=== PATIENT | male | born 1995 | race American Indian/Alaskan Native ===

== ENCOUNTER 2021-07-24 09:04 | Emergency (ER) | payer SELFPAY ==
[2021-07-24] MEDS ORDERED: METAXALONE 800 MG TAB PO ONE (09:25)
--- NOTE | 2021-07-24 09:26 | Emergency Department Report ---
ED Back Pain/Injury HPI - General Chief Complaint: Back Pain/Injury Stated Complaint: FALL INJURY-BACK PAIN Time Seen by Provider: 07/24/21 09:15 Source: patient Limitations: No Limitations - History of Present Illness Initial Comments: Patient presents secondary to back pain after fall. He was at work yesterday. He was climbing up on a truck to help unload. Unfortunately, the truck started to move as he was climbing. He fell backwards. He states that he did not have time to jump off. He fell onto his back. He has been having severe back pain. He went to [facility] urgent care yesterday. They suggested that he get seen and actually filled out transfer paperwork for him to go to the ED. He did not have money to pay for an ambulance. He went home instead and took ibuprofen. That is not helping. He came here today for evaluation. Pain is diffuse in the neck and back. He states that it hurts with any kind of movement. He denies numbness or tingling in the arms or legs. He has no incontinence of bowel or bladder. He has no other complaint. He has never injured his back before. Pain is constant. - Related Data Previous Rx's Medication Instructions Recorded Last Taken Type Acetaminophen/Codeine [Tylenol 1 tab PO Q6H PRN #12 tab 07/24/21 Unknown Rx /Codeine # 3 tab] Lidocaine [Lidoderm] 1 each TP DAILY #30 patch 07/24/21 Unknown Rx Metaxalone [Skelaxin] 800 mg PO TID #9 tablet 07/24/21 Unknown Rx Allergies Allergy/AdvReac Type Severity Reaction Status Date / Time No Known Allergies Allergy Verified 07/24/21 09:10 ED Review of Systems ROS: Stated complaint: FALL INJURY-BACK PAIN Other details as noted in HPI Comment: All other systems reviewed and negative Constitutional: denies: fever Eyes: denies: vision change ENT: denies: throat pain Respiratory: denies: cough Cardiovascular: denies: chest pain Endocrine: denies: unexplained weight loss Gastrointestinal: denies: abdominal pain Genitourinary: denies: dysuria Musculoskeletal: as per HPI Skin: denies: rash Neurological: denies: headache Hematological/Lymphatic: denies: easy bruising ED Past Medical Hx - Past Medical History Previous Medical History?: No - Surgical History Past Surgical History?: No - Family History Family history: no significant - Medications Home Medications: Home Medications Medication Instructions Recorded Confirmed Last Taken Type Acetaminophen/Codeine [Tylenol 1 tab PO Q6H PRN #12 tab 07/24/21 Unknown Rx /Codeine # 3 tab] Lidocaine [Lidoderm] 1 each TP DAILY #30 patch 07/24/21 Unknown Rx Metaxalone [Skelaxin] 800 mg PO TID #9 tablet 07/24/21 Unknown Rx ED Physical Exam - General Limitations: No Limitations, Other (Pulse ox noted and normal) General appearance: alert, in no apparent distress - Head Head exam: Present: atraumatic, normocephalic - Eye Eye exam: Present: normal appearance, PERRL, EOMI, scleral icterus - ENT ENT exam: Present: normal orophraynx, normal external ear exam - Neck Neck exam: Present: normal inspection, tenderness (Diffuse), other (No point tenderness). Absent: meningismus - Respiratory Respiratory exam: Present: normal lung sounds bilaterally. Absent: respiratory distress - Cardiovascular Cardiovascular Exam: Present: regular rate, normal rhythm - GI/Abdominal GI/Abdominal exam: Present: soft. Absent: distended, tenderness - Extremities Exam Extremities exam: Present: normal capillary refill - Back Exam Back exam: Present: paraspinal tenderness (Diffuse thoracic and lumbar), vertebral tenderness (Diffuse thoracic and lumbar). Absent: CVA tenderness (R), CVA tenderness (L) - Neurological Exam Neurological exam: Present: alert, oriented X3, CN II-XII intact, abnormal gait (Antalgic), reflexes normal, other (Negative straight leg raise). Absent: motor sensory deficit - Psychiatric Psychiatric exam: Present: normal affect, normal mood - Skin Skin exam: Present: warm, dry ED Course Vital Signs 07/24/21 09:13 Temperature 98.0 F Pulse Rate 77 Respiratory 16 Rate Blood Pressure 120/75 O2 Sat by Pulse 99 Oximetry - Reevaluation(s) Reevaluation #1: 07/24/21 09:26 X-rays were ordered. Analgesics ordered. Old records noted. Reevaluation #2: 07/24/21 10:29 X-rays were noted. Patient was discharged. ED Medical Decision Making - Radiology Data Radiology results: report reviewed - Medical Decision Making Patient presented secondary to diffuse neck and back pain after a fall at work. Radiographically, there is no evidence of acute fracture or compression fracture. Disc height has been noted. Patient has no neurologic symptom or deficit that would suggest any type of cord injury. I do not believe MRI is indicated emergently. We have treated him symptomatically. He will be referred back to work comp. He can continue NSAIDs [id number]. He was given a prescription for ibuprofen and can take that as well. Critical Care Time: No Critical care attestation.: If time is entered above; I have spent that time in minutes in the direct care of this critically ill patient, excluding procedure time. ED Disposition Clinical Impression: Strain of thoracic back region Fall Qualifiers: Encounter type: initial encounter Qualified Code(s): W19.XXXA - Unspecified fall, initial encounter Acute cervical myofascial strain Qualifiers: Encounter type: initial encounter Qualified Code(s): S16.1XXA - Strain of muscle, fascia and tendon at neck level, initial encounter Acute lumbar myofascial strain Qualifiers: Encounter type: initial encounter Qualified Code(s): S39.012A - Strain of muscle, fascia and tendon of lower back, initial encounter Disposition: HOME / SELF CARE / HOMELESS Is pt being admited?: No Condition: Stable Instructions: Muscle Strain, [id number], Lumbosacral Strain, Cervical Sprain, How to Use Cold Therapy, [id number] Additional Instructions: Apply ice for 3 days. After 3 days, switch to heat. Drink plenty of water. Return for problems. Follow-up with your regular doctor or the work comp doc in 2 to 3 days for recheck. Prescriptions: Lidocaine [Lidoderm] 1 each TP DAILY #30 patch Metaxalone [Skelaxin] 800 mg PO TID #9 tablet Acetaminophen/Codeine [Tylenol /Codeine # 3 tab] 1 tab PO Q6H PRN #12 tab PRN Reason: Pain , Severe (7-10)
[2021-07-24 09:56] VITALS: BP 120/75
--- NOTE | 2021-07-24 10:10 | XRay Report ---
EXAMINATION: Cervical spine radiograph series, 3 views, 07/24/2021 CLINICAL INFORMATION / INDICATION: Trauma. Neck pain. COMPARISON: None FINDINGS: There is normal alignment of the cervical vertebral bodies. Vertebral body height and inter vertebral disc spaces appear well maintained. No significant bony degenerative changes are noted. The re is no evidence of prevertebral soft tissue swelling. The odontoid view demonstrates no focal abnor mality. IMPRESSION: No radiographic evidence of acute bony abnormality of the cervical spine. Signer Name: Esther Comer MD Signed: 07/24/2021 10:06 AM Workstation Name: [id number]
--- NOTE | 2021-07-24 10:12 | XRay Report ---
EXAMINATION: Thoracic spine radiograph series, 2 views, 07/24/2021 CLINICAL INFORMATION / INDICATION: Trauma. Back pain. COMPARISON: None FINDINGS: There is normal alignment of the thoracic vertebral bodies. Vertebral body height and inter vertebral disc spaces are well maintained. There are no significant bony degenerative changes. IMPRESSION: No radiographic evidence of acute bony abnormality of the thoracic spine. Signer Name: Esther Comer MD Signed: 07/24/2021 10:07 AM Workstation Name: [id number]
--- NOTE | 2021-07-24 10:13 | XRay Report ---
EXAMINATION: Lumbar spine radiograph series, 2 views, 07/24/2021 CLINICAL INFORMATION / INDICATION: Trauma. Back pain. COMPARISON: None FINDINGS: There is normal alignment of the lumbar vertebral bodies. Vertebral body height and interve rtebral disc spaces are well maintained. There are no significant bony degenerative changes. IMPRESSION: No radiographic evidence of acute bony abnormality of the lumbar spine. Signer Name: Esther Comer MD Signed: 07/24/2021 10:09 AM Workstation Name: [id number]
== END 2021-07-24 10:46 | disposition home or self-care (01) ==
LOC: ED 09:04
DX: S16.1XXA Strain of muscle, fascia and tendon at neck level, initial encounter (principal); S39.012A Strain of muscle, fascia and tendon of lower back, initial encounter; S29.012A Strain of muscle and tendon of back wall of thorax, initial encounter; Z79.899 Other long term (current) drug therapy; W18.39XA Other fall on same level, initial encounter; Y93.89 Activity, other specified; Y92.89 Other specified places as the place of occurrence of the external cause; Y99.8 Other external cause status
CPT/HCPCS: 72040; 72070; 72100; 99283

== ENCOUNTER 2022-01-17 14:20 | Emergency (ER) | payer SELFPAY ==
[2022-01-17 15:51] VITALS: BP 115/74
--- NOTE | 2022-01-17 15:55 | Emergency Department Report ---
ED Fall HPI - General Stated Complaint: LEFT LEG INJURY Time Seen by Provider: 01/17/22 15:49 - History of Present Illness Initial Comments: Left hip pain Patient reports a fall from a truck prior to arrival. He is able to ambulate -: Sudden Fall From: standing When Fall Occurred: 1-3 hours [employer] Fall Witnessed: no Place Fall Occurred: street Loss of Consciousness: none Prolonged Down Time?: no Symptoms Prior to Fall: none Location: pelvis Severity: moderate Quality: burning Associated Symptoms: denies: denies, headache, neck pain, numbness, weakness, chest paint, shortness of breath, abdominal pain, hematuria, lightheaded - Related Data Previous Rx's Medication Instructions Recorded Last Taken Type Acetaminophen/Codeine [Tylenol 1 tab PO Q6H PRN #12 tab 07/24/21 Unknown Rx /Codeine # 3 tab] Lidocaine [Lidoderm] 1 each TP DAILY #30 patch 07/24/21 Unknown Rx Metaxalone [Skelaxin] 800 mg PO TID #9 tablet 07/24/21 Unknown Rx Ibuprofen [Motrin 800 MG tab] 800 mg PO ONCE PRN #21 tablet 01/17/22 Unknown Rx Allergies Allergy/AdvReac Type Severity Reaction Status Date / Time No Known Allergies Allergy Verified 01/17/22 15:52 ED Review of Systems ROS: Stated complaint: LEFT LEG INJURY Other details as noted in HPI Comment: All other systems reviewed and negative Constitutional: no symptoms reported Respiratory: no symptoms reported. denies: see HPI Cardiovascular: denies: chest pain, palpitations Endocrine: denies: excessive sweating, intolerance to cold Gastrointestinal: denies: abdominal pain, nausea, vomiting Genitourinary: denies: urgency Musculoskeletal: arthralgia, myalgia. denies: back pain, joint swelling Skin: denies: rash, lesions Neurological: denies: headache, weakness, numbness ED Past Medical Hx - Medications Home Medications: Home Medications Medication Instructions Recorded Confirmed Last Taken Type Acetaminophen/Codeine [Tylenol 1 tab PO Q6H PRN #12 tab 07/24/21 Unknown Rx /Codeine # 3 tab] Lidocaine [Lidoderm] 1 each TP DAILY #30 patch 07/24/21 Unknown Rx Metaxalone [Skelaxin] 800 mg PO TID #9 tablet 07/24/21 Unknown Rx Ibuprofen [Motrin 800 MG tab] 800 mg PO ONCE PRN #21 tablet 01/17/22 Unknown Rx ED Physical Exam - General Limitations: No Limitations General appearance: alert, in no apparent distress - Head Head exam: Present: atraumatic - Eye Eye exam: Present: normal appearance - ENT ENT exam: Present: normal exam, normal orophraynx - Neck Neck exam: Present: normal inspection - Respiratory Respiratory exam: Present: normal lung sounds bilaterally - Cardiovascular Cardiovascular Exam: Present: regular rate - GI/Abdominal GI/Abdominal exam: Present: soft. Absent: distended - Extremities Exam Extremities exam: Present: normal inspection, full ROM, tenderness (Left hip tender, full range of motion, pain worse with ambulation full no shortening), normal capillary refill - Back Exam Back exam: Present: normal inspection, full ROM. Absent: tenderness, muscle spasm, paraspinal tenderness, vertebral tenderness - Neurological Exam Neurological exam: Present: alert, oriented X3 - Skin Skin exam: Present: warm, dry, intact ED Course Vital Signs 01/17/22 15:49 Temperature 98.6 F Pulse Rate 75 Respiratory 18 Rate Blood Pressure 115/74 [Right] O2 Sat by Pulse 100 Oximetry ED Medical Decision Making - Medical Decision Making X-rays negative for acute fracture. Will discharge home with ice, NSAIDs supportive therapy and follow-up with Patient remained stable nontoxic-appearing, afebrile, ambulating steadily without assistance. Gone over ED findings with patient as well as plan for follow-up. Also discussed return precautions with patient, all questions and c oncerns addressed. Patient is stable to be discharged follow-up outpatient. Audio voice dictation device used, hence the chart might contain some dictation errors, mispronunciations, wrong spelling and wrong verbiage. Critical care attestation.: If time is entered above; I have spent that time in minutes in the direct care of this critically ill patient, excluding procedure time. ED Disposition Clinical Impression: Fall, Hip pain Disposition: 01 HOME / SELF CARE / HOMELESS Is pt being admited?: No Does the pt Need Aspirin: No Condition: Stable Instructions: Hip Pain Prescriptions: Ibuprofen [Motrin 800 MG tab] 800 mg PO ONCE PRN #21 tablet PRN Reason: Pain , Severe (7-10)
[2022-01-17] MEDS ORDERED: IBUPROFEN 800 MG TAB PO ONE (16:21)
[2022-01-17] MEDS ORDERED: HYDROcodone/ACETAMINOPHEN 5-325 MG TAB PO ONE (16:23)
--- NOTE | 2022-01-17 16:58 | XRay Report ---
XR hip 2-3V LT INDICATION / CLINICAL INFORMATION: trauma, pain, diff walking. COMPARISON: None available. FINDINGS: BONES/JOINT(S): No acute fracture or subluxation. No significant degenerative change. No focal bone e rosions or focal osteopenia to suggest inflammatory arthropathy. SOFT TISSUES: No significant abnormality. ADDITIONAL FINDINGS: None. Signer Name: Dickson King MD Signed: 01/17/2022 4:54 PM Workstation Name: [id number]
== END 2022-01-17 17:56 | disposition home or self-care (01) ==
LOC: ED 14:20
DX: M25.552 Pain in left hip (principal); Z79.899 Other long term (current) drug therapy; W18.39XA Other fall on same level, initial encounter; Y93.89 Activity, other specified; Y92.89 Other specified places as the place of occurrence of the external cause; Y99.8 Other external cause status
CPT/HCPCS: 99283